=== PATIENT | male | born 1970 | race Caucasian/White ===

== ENCOUNTER 2018-07-26 07:08 | Day surgery (SDC) | payer BC ==
[~2018-07-26 07:08] MED LIST: ACETAMINOPHEN 1,000 MG/100 ML BTL IV ONE; CEFAZOLIN 2 Gram 2 GM/50 ML BAG IVPB ONE
[2018-07-26] MEDS ORDERED: DEXAMETHASONE 4 MG/ML 1ML VIAL IVP ONE ×2 (07:09)
[2018-07-26] MEDS ORDERED: FENTANYL PF 100MCG/2ML VIAL IV ONE (07:09)
[2018-07-26] MEDS ORDERED: BUPIVACAINE 0.5% W/EPI MPF 30 ML VIAL IVP ONE (07:09)
[2018-07-26] MEDS ORDERED: LIDOCAINE 2% MDV (20MG/ML) 20ML VIAL IV ONE (07:09)
[2018-07-26] MEDS ORDERED: BUPIVACAINE 0.5% (5MG/ML) PF 30ML VIAL IVP ONE (07:09)
[2018-07-26] MEDS ORDERED: MORPHINE SULFATE PF 10MG/10ML VIAL IV ONE (07:09)
[2018-07-26] MEDS ORDERED: ONDANSETRON HCL IV 4 MG/2 ML VIAL IVP ONE (07:09)
[2018-07-26] MEDS ORDERED: SEVOFLURANE 250 ML INH ONE (07:09)
[2018-07-26] MEDS ORDERED: PROPOFOL 10 MG/ML VIAL IV ONE (07:09)
[2018-07-26] MEDS ORDERED: VANCOMYCIN HCL 1 GM VIAL IVPB ONE (07:09)
[2018-07-26] MEDS ORDERED: METHYLPREDNISOLONE 40MG/VIAL IM ONE (07:09)
[2018-07-26] MEDS ORDERED: MIDAZOLAM HCL 2MG/2ML VIAL IV ONE (07:09)
[2018-07-26] MEDS ORDERED: BUPIVACAINE LIPOSOME/PF 133MG/10ML VIAL IV ONE (07:09)
--- NOTE | 2018-07-27 09:20 | Operative Note ---
DATE OF SURGERY: 07/26/2018 PREOPERATIVE DIAGNOSIS: Right shoulder impingement. POSTOPERATIVE DIAGNOSES: 1. Posterosuperior glenohumeral labral tear. 2. Severe external impingement of right shoulder. 3. Arthrosis right distal clavicle. OPERATION: 1. Right shoulder arthroscopy with interarticular debridement. 2. Right shoulder open acromioplasty, CA ligament resection, subacromial bursectomy. 3. Right shoulder distal clavicle resection. Staff Surgeon: Jake Sweeney MD Anesthesia: General. Preparation: Chloraprep. Individual Considerations: None. PROCEDURE: The patient was taken to the operating room, placed supine on the operating room table. He had a successful induction with general anesthetic. He was then placed in a semi-seated beach chair position. His right arm and shoulder were prepped and draped in the usual fashion. Examination under anesthesia showed no instability. The patient had posterior portal identified for arthroscopy. Skin was infiltrated with 0.5% Marcaine with epinephrine prior. An 18-gauge spinal needle was placed in the joint and the joint was inflated with normal saline with a 60-mL syringe. A stab wound was made and a blunt-tipped trocar for the scope was easily placed in the joint. The joint was inflated with normal saline. An anterior accessory portal was then made just inferior to the intact long head of the biceps tendon in retrograde fashion with a Wissinger dewey, and the joint was irrigated out. The patient's glenohumeral joint was normal. He had a basically frayed labrum with attachment superiorly and posteriorly. This was debrided out with a shaver. The long head was otherwise intact. Rotator cuff underneath look contused but intact. Subscap was normal. No significant synovitis in the inferior pouch or loose bodies. After irrigation, portals were closed with km. The patient had an anterior approach to the subacromial space and distal clavicle. Skin was infiltrated with 0.5% Marcaine with epinephrine prior. Sharp dissection carried down through skin and subcutaneous tissues. Small veins were coagulated with a Bovie. An anterior deltoid interval was developed. Care was taken not to split the deltoid more than about 4 cm distal to the anterior tip of the acromion to prevent injury to the axillary nerve. Once in the subacromial space, I could tell that it was very tight. The deltoid was then taken subperiosteally off the anterior aspect of the acromion over the top of the intact CA ligament and off the anterior aspect of a fairly highly degenerated distal clavicle. CA ligament was resected with a Bovie. The patient had large spurs underneath the acromion at the AC joint. Distal clavicle was resected taking about 1 cm and also removing spur at the distal clavicle. This was done with an oscillating saw. An anterior acromioplasty was performed taking mostly downsloping spur about a centimeter tapering towards posteromedially to include the spurs at the AC joint. The undersurface was then smoothed with a rasp. The patient had a very thick bursa and this was all debrided out. I now had a good look at the rotator cuff. On the supraspinatus there were areas of contusion and what appeared to be almost slight partial tears from scraping but there was nothing to repair here. After irrigation, I went ahead and placed a spinal needle into the shoulder joint itself. I then closed the deltoid and reattached it back to remaining acromion with multiple interrupted #2 Vicryl going directly through the bony acromion. The periosteal cup of the distal clavicle was closed with running #2 Vicryl. Anterior deltoid interval was closed with running #1 Vicryl. Subcu was closed with 2-0 plus Vicryl in layers and skin was closed with km. An 18-gauge spinal needle was placed into the subacromial space. I injected about 15 mL of 0.5% Marcaine with epinephrine into the subacromial space and then I put about 5 mL of 0.5% Marcaine in the joint itself through the previously placed 22-gauge spinal needle. The patient had a sterile bulky compressive dressing and sling applied. He tolerated the procedure well. Needle and sponge counts were correct. Estimated blood loss was minimal. He was taken back to recovery in good condition. There were no complications. LALITHA
== END 2018-07-26 11:45 | disposition home or self-care (01) ==
LOC: SUR 07:08
PROVIDERS: ATTEND Orthopaedic Surgery
DX: S43.431A Superior glenoid labrum lesion of right shoulder, initial encounter (principal); M19.011 Primary osteoarthritis, right shoulder; I10 Essential (primary) hypertension; E66.9 Obesity, unspecified
CPT/HCPCS: 29822; 23130; 23120; 01630; 64415; J2405; J3370; J3010; J0690; C9290; 76942; J1030